=== PATIENT | female | born 1945 | race African-American/Black ===

== ENCOUNTER 2019-05-25 15:52 | Emergency (ER) | payer OTHER ==
[2019-05-25 16:16] VITALS: BP 140/74; PULSE 79; TEMP 97.6; BMI 25.0
--- NOTE | 2019-05-25 17:33 | PDOC ---
History of Present Illness - General Chief Complaint: Altered Mental Status Stated Complaint: ALT MENTAL STATUS Time Seen by Provider: 05/25/19 16:51 History Source: Patient Exam Limitations: No Limitations - History of Present Illness Initial Comments: 05/25/19 17:38 73y F with PMH of Bipolar, Schizophrenia presenting to ED via EMS after being found wandering on the streets. Pt states that she was walking outside because she is homeless. Pt was discharged from [facility] and has follow up with psychiatry scheduled. She says she is taking her medications. She says she hears voices but they are saying nice things to her. She denies visual hallucinations, suicidal and homicidal ideations. She says she is going to be going to the [place] where she stayed last night. Denies fever, chills, chest pain, sob, headache, changes in vision, n/v/d, abdominal pain. Past History - Past Medical History Allergies/Adverse Reactions: Allergies Allergy/AdvReac Type Severity Reaction Status Date / Time No Known Allergies Allergy Verified 05/25/19 16:16 Home Medications: Ambulatory Orders NK [No Known Home Medication] 05/25/19 COPD: No Psychiatric Problems: Yes (SCHIOPHRENIA BIPOLAR) - Psycho Social/Smoking Cessation Hx Smoking History: Former smoker Have you smoked in the past 12 months: Yes Information on smoking cessation initiated: No Hx Alcohol Use: No Drug/Substance Use Hx: No Review of Systems - Review of Systems Constitutional: No: Symptoms Reported HEENTM: No: Symptoms Reported Respiratory: No: Symptoms reported Cardiac (ROS): No: Symptoms Reported ABD/GI: No: Symptoms Reported : No: Symptoms Reported Musculoskeletal: No: Symptoms Reported Integumentary: No: Symptoms Reported Neurological: No: Symptoms reported Psychiatric: No: Depression *Physical Exam - Vital Signs Last Vital Signs Temp Pulse Resp BP Pulse Ox 97.6 F 79 18 140/74 100 05/25/19 16:06 05/25/19 16:06 05/25/19 16:06 05/25/19 16:06 05/25/19 16:06 - Physical Exam General Appearance: Yes: Nourished, Appropriately Dressed. No: Apparent Distress HEENT: positive: EOMI, SHANNON Neck: positive: Trachea midline, Supple Respiratory/Chest: positive: Lungs Clear, Normal Breath Sounds Cardiovascular: positive: Regular Rhythm, Regular Rate Gastrointestinal/Abdominal: positive: Soft. 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 pt says she is homeless and that is why she was outside. pt is alert, oriented x4, no si/hi. she has capacity. does not require labs at this time. will dc. Discharge - Discharge Information Problems reviewed: Yes Clinical Impression/Diagnosis: Homeless Condition: Good Disposition: HOME - Admission No - Follow up/Referral - Patient Discharge Instructions Additional Instructions: Please come back to the ER if you have thoughts of hurting yourself, if the voices tell you to do something dangerous or if any new or concerning symptom develops. Thank you - Post Discharge Activity
== END 2019-05-25 18:01 | disposition home or self-care (01) ==
LOC: JER 15:52
DX: Z59.0 Homelessness (principal); F31.9 Bipolar disorder, unspecified; F20.9 Schizophrenia, unspecified; Z87.891 Personal history of nicotine dependence
CPT/HCPCS: 99284-25

== ENCOUNTER 2020-04-23 08:41 | Emergency (ER) | payer BC, OTHER ==
[2020-04-23 08:58] VITALS: BP 140/85; PULSE 80; TEMP 97.6; BMI 26.6
== END 2020-04-23 09:47 | disposition left against medical advice (07) ==
LOC: JER 08:41
DX: Z76.0 Encounter for issue of repeat prescription (principal)
CPT/HCPCS: 99281-25